=== PATIENT | female | born 1975 | race Caucasian/White ===

== ENCOUNTER 2022-12-16 06:30 | Day surgery (SDC) | payer BC ==
[2022-12-16] MEDS ORDERED: Lactated Ringers 1,000 ML IV SCH (07:00)
[2022-12-16] MEDS ORDERED: Propofol 200 MG/20 ML SDV ONE ×2 (07:30→07:43)
[2022-12-16] MEDS ORDERED: Midazolam 1 MG/ML 2 ML SDV ONE (07:30)
[2022-12-16] MEDS ORDERED: fentaNYL 100 MCG/2 ML SDV ONE (07:30)
== END 2022-12-16 08:25 | disposition home or self-care (01) ==
LOC: JP.SDS 06:30
PROVIDERS: ATTEND Student in an Organized Health Care Education/Training Program
DX: Z12.11 Encounter for screening for malignant neoplasm of colon (principal); I10 Essential (primary) hypertension; Z79.899 Other long term (current) drug therapy; Z98.890 Other specified postprocedural states
CPT/HCPCS: J2250; J2704; J3010; J7120